=== PATIENT | female | born 1995 | race Caucasian/White ===

== ENCOUNTER 2016-08-30 10:28 | Emergency (ER) | payer MEDICAID, OTHER ==
[2016-08-30 11:13] VITALS: BP 112/73
--- NOTE | 2016-08-30 11:23 | UC ---
Abdominal Pain Female HPI - HPI Summary HPI Summary: DIARRHEA X 1 DAY + NAUSEA AND VOMITING X 1 SINCE THIS MORNING NO FEVER, NO CHILLS, NO ABDOMINAL PAIN - History of Current Complaint Chief Complaint: UCGI Stated Complaint: DIARRHEA,NAUSEA Time Seen by Provider: 08/30/16 11:13 Hx Obtained From: Patient Hx Last Menstrual Period: 3 weeks ago ?: No Onset/Duration: Sudden Onset, Lasting Days - 1, Still Present Severity Initially: Moderate Severity Currently: Moderate Location: Diffuse Radiates: No Character: Cramping Aggravating Factor(s): Food Alleviating Factor(s): Nothing Associated Signs and Symptoms: Positive: Nausea, Vomiting, Diarrhea. Negative: Fever, Cough, Chest Pain, Dizzy, Constipation, Blood in Stool, Vaginal Bleeding Allergies/Adverse Reactions: Allergies Allergy/AdvReac Type Severity Reaction Status Date / Time Amoxicillin [From Augmentin] AdvReac Diarrhea Verified 08/30/16 11:07 Clavulanic Acid AdvReac Diarrhea Verified 08/30/16 11:07 [From Augmentin] PMH/Surg Hx/FS Hx/Imm Hx Previously Healthy: Yes - Surgical History Surgical History: None - Family History Known Family History: Positive: None - Social History Alcohol Use: None Substance Use Type: None Smoking Status (MU): Never Smoked Tobacco Review of Systems Constitutional: Negative Skin: Negative Eyes: Negative ENT: Negative Respiratory: Negative Gastrointestinal: Vomiting, Diarrhea Musculoskeletal: Negative All Other Systems Reviewed And Are Negative: Yes Physical Exam Triage Information Reviewed: Yes Appearance: Well-Appearing, No Pain Distress, Well-Nourished Vital Signs: Initial Vital Signs Temp 98.7 F 08/30/16 11:08 Pulse 60 08/30/16 11:08 Resp 16 08/30/16 11:08 BP 112/73 08/30/16 11:08 Pulse Ox 98 08/30/16 11:08 Vital Signs Reviewed: Yes Eyes: Positive: Conjunctiva Clear ENT: Positive: Normal ENT inspection, Hearing grossly normal, Pharynx normal Neck exam: Normal Neck: Positive: Supple, Nontender, No Lymphadenopathy Respiratory Exam: Normal Respiratory: Positive: Chest non-tender, Lungs clear, Normal breath sounds Cardiovascular: Positive: RRR, No Murmur, Pulses Normal Abdomen Description: Positive: Nontender, Soft, CVA Tenderness (R). Negative: Distended, Guarding Bowel Sounds: Positive: Hypoactive Musculoskeletal Exam: Normal Skin Exam: Normal Abd Pain Female Course/Dx - Differential Dx/Diagnosis Provider Diagnoses: GASTROENTERITIS Discharge - Discharge Plan Condition: Stable Disposition: HOME Patient Education Materials: Gastroenteritis (ED) Referrals: Montana Farr [Primary Care Provider] - If Needed
== END 2016-08-30 11:38 | disposition home or self-care (01) ==
LOC: UCCORT 10:28
DX: K52.9 Noninfective gastroenteritis and colitis, unspecified (principal); Z88.0 Allergy status to penicillin
CPT/HCPCS: 99211; G0463

== ENCOUNTER 2017-06-12 09:06 | Emergency (ER) | payer SELFPAY ==
--- NOTE | 2017-06-12 09:10 | UC ---
Shoulder Pain HPI - HPI Summary HPI Summary: 22 year old female presents with complains of left shoulder pain secondary top overuse. - History of Current Complaint Stated Complaint: LEFT SHOULDER/ARM PAIN Time Seen by Provider: 06/12/17 09:10 Hx Obtained From: Patient Hx Last Menstrual Period: 3 weeks ago Onset/Duration: Sudden Onset Timing: Constant Severity Initially: Moderate Severity Currently: Moderate Pain Scale Used: 0-10 Numeric - 5 Character: Sharp Aggravating Factor(s): Movement, Lifting, Flexion, Extension Alleviating Factor(s): Rest Associated Signs And Symptoms: Positive: Negative - Allergies/Home Medications Allergies/Adverse Reactions: Allergies Allergy/AdvReac Type Severity Reaction Status Date / Time Amoxicillin [From Augmentin] AdvReac Diarrhea Verified 06/12/17 09:23 Clavulanic Acid AdvReac Diarrhea Verified 06/12/17 09:23 [From Augmentin] PMH/Surg Hx/FS Hx/Imm Hx Previously Healthy: Yes - Surgical History Surgical History: None - Family History Known Family History: Positive: None - Social History Alcohol Use: None Substance Use Type: None Smoking Status (MU): Never Smoked Tobacco Review of Systems Constitutional: Negative Skin: Negative Eyes: Negative ENT: Negative Respiratory: Negative Cardiovascular: Negative Gastrointestinal: Negative Genitourinary: Negative Motor: Negative Neurovascular: Negative Musculoskeletal: Myalgia, Other: - left shoulder pain/spasm Neurological: Negative Psychological: Negative All Other Systems Reviewed And Are Negative: Yes Physical Exam Triage Information Reviewed: Yes Vital Signs Reviewed: Yes Eye Exam: Normal ENT Exam: Normal Dental Exam: Normal Neck exam: Normal Neck: Positive: 1 Respiratory Exam: Normal Cardiovascular Exam: Normal Abdominal Exam: Normal Musculoskeletal Exam: Normal Musculoskeletal: Positive: Other: - left shoulder pain Neurological Exam: Normal Psychological Exam: Normal Skin Exam: Normal Shoulder Course/Dx - Differential Dx/Diagnosis Provider Diagnoses: left shoulder strain. left shoulder pain Discharge - Discharge Plan Condition: Stable Disposition: HOME Prescriptions: Ibuprofen TAB* [Motrin TAB* 800 MG] 800 mg PO Q6H #30 tab Methocarbamol TAB* [Robaxin 500 MG TAB*] 500 mg PO TID PRN #30 tab PRN Reason: Spasms Patient Education Materials: Shoulder Pain (ED) Referrals: Bayron Sotelo PA [Primary Care Provider] - Niles Lynn [Physical Therapist] -
[2017-06-12 09:27] VITALS: BP 114/62
== END 2017-06-12 09:40 | disposition home or self-care (01) ==
LOC: UCCORT 09:06
DX: S46.912A Strain of unspecified muscle, fascia and tendon at shoulder and upper arm level, left arm, initial encounter (principal); X50.9XXA Other and unspecified overexertion or strenuous movements or postures, initial encounter; M25.512 Pain in left shoulder; Y92.9 Unspecified place or not applicable; Z88.3 Allergy status to other anti-infective agents
CPT/HCPCS: 99212; G0463

== ENCOUNTER 2017-06-18 09:38 | Emergency (ER) | payer SELFPAY ==
[2017-06-18 10:29] VITALS: BP 113/67
[2017-06-18] MEDS ORDERED: Ondansetron ODT TAB* 4 MG PO ONE (11:02)
--- NOTE | 2017-06-18 11:03 | UC ---
Abdominal Pain Female HPI - HPI Summary HPI Summary: Nausea/vomiting and diarrhea(watery) began in the night last night-no fevers does have chills - History of Current Complaint Chief Complaint: UCGI Stated Complaint: STOMACH ACHE Time Seen by Provider: 06/18/17 10:56 Hx Obtained From: Patient Hx Last Menstrual Period: 05/19/17 ?: No Onset/Duration: Sudden Onset, Lasting Hours, Still Present Timing: Constant Severity Initially: Moderate Severity Currently: Moderate Location: Diffuse Radiates: No Character: Cramping Aggravating Factor(s): Food Alleviating Factor(s): Nothing Associated Signs and Symptoms: Positive: Nausea, Vomiting, Diarrhea Allergies/Adverse Reactions: Allergies Allergy/AdvReac Type Severity Reaction Status Date / Time Amoxicillin [From Augmentin] AdvReac Diarrhea Verified 06/18/17 10:21 Clavulanic Acid AdvReac Diarrhea Verified 06/18/17 10:21 [From Augmentin] Home Medications: Home Medications Naproxen TAB* [Naprosyn 250 mg TAB*] 250 mg PO Q8H PRN 06/18/17 [History Confirmed 06/18/17] PMH/Surg Hx/FS Hx/Imm Hx Previously Healthy: Yes - Surgical History Surgical History: None - Family History Known Family History: Positive: None - Social History Occupation: Employed Full-time Lives: With Family Alcohol Use: Occasionally Substance Use Type: None Substance Use Comment - Amount & Last Used: OCCAISIONALLY Smoking Status (MU): Never Smoked Tobacco - Immunization History Most Recent Influenza Vaccination: unsure Review of Systems Constitutional: Chills Skin: Negative Eyes: Negative ENT: Negative Respiratory: Negative Cardiovascular: Negative Gastrointestinal: Vomiting, Diarrhea, Nausea Genitourinary: Negative Motor: Negative Neurovascular: Negative Musculoskeletal: Negative Neurological: Negative Psychological: Negative Is Patient Immunocompromised?: No All Other Systems Reviewed And Are Negative: Yes Physical Exam Triage Information Reviewed: Yes Appearance: No Pain Distress, Well-Nourished, Ill-Appearing - mild Vital Signs: Initial Vital Signs Temp 98.4 F 06/18/17 10:23 Pulse 84 06/18/17 10:23 Resp 16 06/18/17 10:23 BP 113/67 06/18/17 10:23 Pulse Ox 100 06/18/17 10:23 Vital Signs Reviewed: Yes Eye Exam: Normal Eyes: Positive: Conjunctiva Clear ENT Exam: Normal ENT: Positive: Normal ENT inspection, Hearing grossly normal, Pharynx normal, TMs normal, Uvula midline. Negative: Nasal congestion, Nasal drainage, Tonsillar swelling, Tonsillar exudate, Trismus, Muffled voice, Hoarse voice, Dental tenderness, Sinus tenderness Dental Exam: Normal Neck exam: Normal Neck: Positive: Supple, Nontender, No Lymphadenopathy Respiratory Exam: Normal Respiratory: Positive: Chest non-tender, Lungs clear, Normal breath sounds, No respiratory distress, No accessory muscle use Cardiovascular Exam: Normal Cardiovascular: Positive: RRR, No Murmur, Pulses Normal, Brisk Capillary Refill Abdominal Exam: Normal Abdomen Description: Positive: Nontender, No Organomegaly, Soft. Negative: CVA Tenderness (R), CVA Tenderness (L), Guarding, Hepatomegaly, McBurney's Point Tenderness, Peritoneal Signs Bowel Sounds: Positive: Present Musculoskeletal Exam: Normal Musculoskeletal: Positive: Strength Intact, ROM Intact, No Edema Neurological Exam: Normal Neurological: Positive: Alert, Muscle Tone Normal Psychological Exam: Normal Skin Exam: Normal Re-Evaluation - Re-Evaluation First Eval Change: Improved - tolerated po fluids well after zofran and is feeling better Abd Pain Female Course/Dx - Course Course Of Treatment: zofran rest advance diet from clear liquids over never 24 hours - Differential Dx/Diagnosis Provider Diagnoses: Acute nausea, vomiting, diarrhea Discharge - Discharge Plan Condition: Stable Disposition: HOME Prescriptions: Ondansetron ODT TAB* [Zofran 4 MG Odt TAB*] 4 mg PO Q6H PRN #4 tab.odt PRN Reason: nausea/vomiting Patient Education Materials: Acute Nausea and Vomiting (ED), Acute Diarrhea (ED ), Nutrition Tips for Relief of Diarrhea (ED) Forms: *Work Release Referrals: Bayron Sotelo PA [Primary Care Provider] - If Needed
== END 2017-06-18 11:58 | disposition home or self-care (01) ==
LOC: UCCORT 09:38
DX: R11.2 Nausea with vomiting, unspecified (principal); R19.7 Diarrhea, unspecified; Z88.1 Allergy status to other antibiotic agents
CPT/HCPCS: 99212; A9270-GY; G0463

== ENCOUNTER 2017-09-01 12:57 | Emergency (ER) | payer SELFPAY ==
--- OUTSIDE RECORDS SUMMARY | 2017-09-01 13:15 | XMS REPORT ---
:1995 External Reference #:[id number] Author Organization [facility] Address [address] [place] [address] Phone [phone] Care Team Providers Name Role Phone Lev Sotelo Primary Care Physician Unavailable Payers Type Date Identification Numbers Payment Provider Subscriber Commercial Expires: Policy Number: [id number] [facility] Rody Luis 2016 PayID: [id number] [address] [place] [address] Medicaid Expires: 2016 Policy Number: [id number] Medicaid -Maria A Rody Broderickby PayID: [id number] [address] [place] [address] Medicaid Expires: 2016 Policy Number: [id number] Medicaid Pe ([facility]) Rody Broderickby PayID: [id number] [address] [place] [address] Commercial Expires: 2015 Policy Number: [id number] Rody Luis PayID: [id number] [place] [id number] Commercial Expires: 2015 [facility]: [id number] [facility] [id number] [address] [address] [place] [address] Medicaid Policy Number: [id number] Medicaid Pe ([facility]) Rody Smith PayID: [id number] [address] [place] [id number] Problems Date Description Provider Status Onset: 03/23/2015 Migraine with aura Estefania Mcmullen NP Active Family History Date Family Member(s) Problem(s) Comments General Diabetes MGM Father Alive Father Hypertension Mother due to Suicide () - September 2014 age 36. Siblings 2 younger brothers Social History Type Date Description Comments Education Highest level completed, 12th grade Marital Status Legal Status: Never Diet Healthy, Well Balanced Occupation Follow Up Rep Work Status Full-Time Employment ETOH Use Occasionally consumes alcohol Smoking Patient has never smoked Recreational Drug Use Sporadically uses Marijuana Recreational Drug Use Teaching Provided Regarding Naloxone/Narcan Training Available At [facility] Tattoo/Piercing Tattoo professionally done Tattoo/Piercing Pierced ears Tattoo/Piercing Piercings professionally done Sun Exposure Uses sunscreen sometimes Currently Active Patient is currently sexually active Condom Use Occasionally Contraceptive Methods Current methods used include Nexplanon Age 1st [place] 17 Years Old # Partners in a Lifetime 4 STD's No STD History Allergies, Adverse Reactions, Alerts Date Description Reaction Status Severity Comments 03/23/2015 Augmentin severe diarrhea active pt aware this is a side effect and not an allergy Medications Medication Date Status Form Strength Qnty SIG Indications Ordering Provider Nexplanon Active Implant 68mg one device in Z30.46 In Whan 017 Left arm MD Jeevan subdermally Nexplanon Active Implant 68mg 1units Estefania 014 Servies, [employer] Diflucan Hx Tablets 150mg 2tabs take 1 tab x1 B37.3 In Whan 017 - now and october MD Jeevan repeat in 10 018 days if symptoms do not resolve Diflucan Hx Tablets 150mg 1tabs 1 tab by mouth B37.3 Estefania 015 - as one dose Servies, [employer] 016 Naprosyn 00/00/0 Hx Unknown 000 - 017 Immunizations CPT Code Status Date Vaccine Lot # [id number] Given 03/23/2015 J-Influenza Virus Split 3 Yrs And Above For [id number] Intramuscular Use Vital Signs Date Vital Result Comment 08/12/2017 BP Systolic 111 mmHg BP Diastolic 63 mmHg Height 64 inches 5'4" Weight 160.00 lb BMI (Body Mass Index) 27.5 kg/m2 01/27/2017 BP Systolic 110 mmHg BP Diastolic 69 mmHg Height 64 inches 5'4" Weight 163.00 lb BMI (Body Mass Index) 28.0 kg/m2 12/24/2016 BP Systolic 113 mmHg BP Diastolic 63 mmHg BP Systolic Recheck 114 mmHg post nexplanon insertion BP Diastolic Recheck 70 mmHg post nexplanon insertion Height 64 inches 5'4" Weight 157.00 lb BMI (Body Mass Index) 26.9 kg/m2 10/24/2016 BP Systolic 112 mmHg BP Diastolic 74 mmHg Height 64 inches 5'4" Weight 156.00 lb BMI (Body Mass Index) 26.8 kg/m2 08/02/2015 BP Systolic 100 mmHg BP Diastolic 60 mmHg Height 64 inches 5'4" Weight 145.00 lb BMI (Body Mass Index) 24.9 kg/m2 Last Menstrual Period [id number] 03/23/2015 BP Systolic 122 mmHg BP Diastolic 80 mmHg Height 63.75 inches 5'3.75" Weight 149.00 lb BMI (Body Mass Index) 25.8 kg/m2 Last Menstrual Period [id number] Results Test Date Test Result H/L Range Note Wet Prep.... 08/12/2017 WBC Smear neg Clue Cells Vag Fluid Wet Prep neg Alisia Wet Prep neg Lactobacillus Wet Prep few Whiff Wet Prep neg Bacteria Wet Prep na PH Wet Prep 4.5 Misc Other Test no tric Urinalysis DIP Only.... 08/12/2017 Urine Leukocyte Esterase QN tr Urine Nitrite QN n Urine Blood +++hemolyzed Urine PH 6 Urine Protein Random tr Urine Ketone Random n Urine Glucose QN Random n Laboratory test finding 01/27/2017 Test Urine..... negative Wet Prep.... 01/27/2017 WBC Smear neg Clue Cells Vag Fluid Wet Prep neg Alisia Wet Prep many Lactobacillus Wet Prep none Whiff Wet Prep neg Bacteria Wet Prep na PH Wet Prep 4.5 Misc Other Test no trich Laboratory test finding 12/24/2016 Test Urine..... negative Laboratory test finding 12/24/2016 HIV Rapid... Neg Urinalysis DIP Only.... 10/24/2016 Urine Leukocyte Esterase QN N Urine Nitrite QN N Urine Blood N Urine PH 6.0 Urine Protein Random N Urine Ketone Random N Urine Glucose QN Random N Laboratory test finding 10/24/2016 Test Urine..... neg Wet Prep.... 10/24/2016 WBC Smear 0 Clue Cells Vag Fluid Wet Prep 0 Alisia Wet Prep 0 Lactobacillus Wet Prep few Whiff Wet Prep neg. Bacteria Wet Prep n/a PH Wet Prep 4.5 Misc Other Test no trich seen Chlam Trach/Neisseria 10/24/2016 C.Trachomatis NOT DETECTED Not Detected 1 Gonorroeae Rna Tma Rna,Tma N.Gonorrhoeae Rna,Tma NOT DETECTED Not Detected 2 Culture,Urine,Voided 08/02/2015 Source URINE-URINE Final Report SEE NOTE 3 Chlam Trach/Neisseria 08/02/2015 C.Trachomatis NOT DETECTED Not Detected 4 Gonorroeae Rna Tma Rna,Tma N.Gonorrhoeae Rna,Tma NOT DETECTED Not Detected 5 Urinalysis DIP Only.... 08/02/2015 Urine Leukocyte Esterase QN N Urine Nitrite QN N Urine Blood +++hem Urine PH 5 Urine Protein Random Tr Urine Ketone Random + Urine Glucose QN Random N Wet Prep.... 08/02/2015 WBC Smear 0 0 Clue Cells Vag Fluid Wet Prep 0 0 Alisia Wet Prep 0 0 Lactobacillus Wet Prep 0 0 Whiff Wet Prep negative negative Bacteria Wet Prep n/a neg PH Wet Prep 4.5 4.5 Misc Other Test no trich seen no trich seen Laboratory test 03/23/2015 C.Trachomatis Rna,Tma NOT DETECTED Not Detected 6 finding W/RFX N.Gonorrhoeae Rna,Tma Urinalysis DIP 03/23/2015 Urine Leukocyte neg Only.... Esterase QN Urine Nitrite QN neg Urine Blood neg Urine PH 5.0 Urine Protein Random neg Urine Ketone Random neg Urine Glucose QN Random neg 1 This test was performed using the APTIMA COMBO2(R) Assay (GEN-PROBE(R). The analytical performance characteristics of this assay, when used to test SurePath(R) specimens have been determined by [facility]. 2 This test was performed using the APTIMA COMBO2(R) Assay (GEN-PROBE(R). The analytical performance characteristics of this assay, when used to test SurePath(R) specimens have been determined by [facility]. 3 NO GROWTH 4 This test was performed using the APTIMA COMBO2(R) Assay (GEN-PROBE(R). The analytical performance characteristics of this assay, when used to test SurePath(R) specimens have been determined by [facility]. 5 This test was performed using the APTIMA COMBO2(R) Assay (GEN-PROBE(R). The analytical performance characteristics of this assay, when used to test SurePath(R) specimens have been determined by [facility]. 6 This test was performed using the APTIMA COMBO2(R) Assay (GEN-PROBE(R). The analytical performance characteristics of this assay, when used to test SurePath(R) specimens have been determined by [facility]. Procedures Date CPT Code Description Status 12/24/2016 09050 Removal With Reinsertion Non-Biodegradable Drug Completed Delivery Implant Encounters Type Date Location Provider CPT E/M Dx Office Visit 12/24/2016 8:30a [facility] [place] [address] Z30.46 Z32.02 Z11.4 Z30.49 Z71.7 Plan of Care Future Appointment(s):09/09/2017 8:00 am - [employer] at [facility]08/12/2017 - Aida Cisse NPZ11.3 Encntr screen for infections w sexl mode of lffvujpudT06.2 Pelvic and perineal painNew Xrays:Ultrasound Pelvic Nonob ZxrhkjbjL85.46 Enctr srvlnc implantable subdermal contraceptive
[2017-09-01 13:35] VITALS: BP 115/68
--- NOTE | 2017-09-01 13:58 | UC ---
Head Injury HPI - HPI Summary HPI Summary: head injury x 1 day hit the table with her head as she was cleaning the table no loc, no memory loss, no n/v, no photophobia + fatigue, just not feeling well - History Of Current Complaint Chief Complaint: UCHeadInjury Stated Complaint: HEAD ACHE (HEAD INJ 2DAYS) Time Seen by Provider: 09/01/17 13:44 Hx Obtained From: Patient Hx Last Menstrual Period: 08/10/17 ?: No Onset/Duration: Sudden Onset, Lasting Days - 1, Still Present Severity Currently: Moderate Severity Initially: Moderate Pain Intensity: 4 Character: Dull Aggravating Factor(s): Nothing Alleviating Factor(s): Nothing Associated Signs And Symptoms: Negative: LOC (Time In Secs./Mins/Hrs), LOC Duration Unknown, Confusion, Memory Loss, Seizure, Epistaxis, Dental Malocclusion, Neck Pain, Nausea, Vomiting - Allergies/Home Medications Allergies/Adverse Reactions: Allergies Allergy/AdvReac Type Severity Reaction Status Date / Time amoxicillin [From Augmentin] Allergy Unknown Diarrhea Verified 09/01/17 13:25 clavulanic acid Allergy Unknown Diarrhea Verified 09/01/17 13:25 [From Augmentin] PMH/Surg Hx/FS Hx/Imm Hx Previously Healthy: Yes - Surgical History Surgical History: None - Family History Known Family History: Positive: None Negative: Diabetes - Social History Alcohol Use: Occasionally Substance Use Type: Marijuana Substance Use Comment - Amount & Last Used: OCCAISIONALLY Smoking Status (MU): Never Smoked Tobacco - Immunization History Most Recent Influenza Vaccination: unsure Review of Systems Constitutional: Negative Skin: Negative Eyes: Negative ENT: Negative Respiratory: Negative Cardiovascular: Negative Musculoskeletal: Negative Neurological: Negative Is Patient Immunocompromised?: No All Other Systems Reviewed And Are Negative: Yes Physical Exam Triage Information Reviewed: Yes Appearance: Well-Appearing, No Pain Distress, Well-Nourished Vital Signs: Initial Vital Signs Temp 99.4 F 09/01/17 13:26 Pulse 63 09/01/17 13:26 Resp 16 09/01/17 13:26 BP 115/68 09/01/17 13:26 Pulse Ox 100 09/01/17 13:26 Vital Signs Reviewed: Yes Eyes: Positive: Conjunctiva Clear ENT: Positive: Normal ENT inspection, Hearing grossly normal, Pharynx normal Neck: Positive: Supple, Nontender, No Lymphadenopathy Respiratory: Positive: Chest non-tender, Lungs clear, Normal breath sounds Cardiovascular: Positive: RRR, No Murmur, Pulses Normal Abdominal Exam: Normal Abdomen Description: Positive: Nontender, Soft Bowel Sounds: Positive: Present Neurological Exam: Normal UC Physical Exam Vital Signs On Initial Exam: Initial Vitals Temp Pulse Resp BP Pulse Ox 99.4 F 63 16 115/68 100 09/01/17 13:26 09/01/17 13:26 09/01/17 13:26 09/01/17 13:26 09/01/17 13:26 - Neurological Exam Neurological: Normal, Sensory/Motor Intact, Alert, Oriented to Person Place, Time, CN Intact II-III, Reflexes Intact, Normal Gait, Speech Normal Head Injury Course/Dx - Differential Dx/Diagnosis Provider Diagnoses: concussion Discharge - Discharge Plan Condition: Stable Disposition: HOME Patient Education Materials: Concussion (ED) Forms: *Work Release Referrals: Bayron Sotelo PA [Primary Care Provider] - If Needed
== END 2017-09-01 13:58 | disposition home or self-care (01) ==
LOC: UCCORT 12:57
DX: S06.0X0A Concussion without loss of consciousness, initial encounter (principal); W22.03XA Walked into furniture, initial encounter; Y93.E9 Activity, other interior property and clothing maintenance; Y92.9 Unspecified place or not applicable; Z88.1 Allergy status to other antibiotic agents
CPT/HCPCS: 99211; G0463

== ENCOUNTER 2017-09-05 12:23 | Emergency (ER) | payer SELFPAY ==
[2017-09-05 12:50] VITALS: BP 122/69
--- NOTE | 2017-09-05 13:02 | UC ---
Headache HPI - HPI Summary HPI Summary: headaches x 5 days + head injury / concussion 5 days ago , still not better, + photophobia, fatigue, no loc, no memory loss - History Of Current Complaint Chief Complaint: UCHeadache Stated Complaint: CONCUSSION RECHECK (STILL HAS DE) Time Seen by Provider: 09/05/17 12:40 Hx Obtained From: Patient Hx Last Menstrual Period: ?: No Onset/Duration: Sudden Onset, Lasting Days - 5, Still Present Onset Of Symptoms: Sudden, Still Present Initially Headache Was: Moderate Currently Pain Is: Moderate Pain Intensity: 5 Timing: Constant Character: Dull, Pressure Location of Headache: Diffuse Aggravating Factor(s): Nothing Associated Signs And Symptoms: Negative: Dizziness, Seizure, Nausea, Vomiting, Sinus Pressure, Neck Pain - Allergies/Home Medications Allergies/Adverse Reactions: Allergies Allergy/AdvReac Type Severity Reaction Status Date / Time amoxicillin [From Augmentin] Allergy Unknown Diarrhea Verified 09/05/17 12:44 clavulanic acid Allergy Unknown Diarrhea Verified 09/05/17 12:44 [From Augmentin] PMH/Surg Hx/FS Hx/Imm Hx Previously Healthy: Yes - Surgical History Surgical History: None - Family History Known Family History: Positive: None Negative: Diabetes - Social History Alcohol Use: Occasionally Substance Use Type: Marijuana Substance Use Comment - Amount & Last Used: OCCAISIONALLY Smoking Status (MU): Never Smoked Tobacco - Immunization History Most Recent Influenza Vaccination: unsure Review of Systems Constitutional: Negative Skin: Negative Eyes: Negative ENT: Negative Respiratory: Negative Is Patient Immunocompromised?: No All Other Systems Reviewed And Are Negative: Yes Physical Exam Triage Information Reviewed: Yes Appearance: Well-Appearing, No Pain Distress, Well-Nourished Vital Signs: Initial Vital Signs Temp 98.7 F 09/05/17 12:45 Pulse 60 09/05/17 12:45 Resp 16 09/05/17 12:45 BP 122/69 09/05/17 12:45 Pulse Ox 100 09/05/17 12:45 Vital Signs Reviewed: Yes Eyes: Positive: Conjunctiva Clear ENT: Positive: Normal ENT inspection, Hearing grossly normal, Pharynx normal Neck exam: Normal Neck: Positive: Supple, Nontender Respiratory: Positive: Chest non-tender, Lungs clear, Normal breath sounds, No respiratory distress Cardiovascular: Positive: RRR, No Murmur, Pulses Normal Abdominal Exam: Normal Abdomen Description: Positive: Nontender. Negative: Distended, Guarding Bowel Sounds: Negative: Present Musculoskeletal: Positive: Strength Intact, ROM Intact, No Edema Neurological: Positive: Alert Skin Exam: Normal UC Physical Exam Vital Signs On Initial Exam: Initial Vitals Temp Pulse Resp BP Pulse Ox 98.7 F 60 16 122/69 100 09/05/17 12:45 09/05/17 12:45 09/05/17 12:45 09/05/17 12:45 09/05/17 12:45 - Neurological Exam Neurological: Normal, Sensory/Motor Intact, Alert, Oriented to Person Place, Time, CN Intact II-III, Normal Gait, Speech Normal Headache Course/Dx - Differential Dx/Diagnosis Provider Diagnoses: concussion Discharge - Discharge Plan Condition: Stable Disposition: HOME Patient Education Materials: Concussion (ED) Forms: *Work Release Referrals: Bayron Sotelo PA [Primary Care Provider] - 7 Days
== END 2017-09-05 13:07 | disposition home or self-care (01) ==
LOC: UCCORT 12:23
DX: Z51.89 Encounter for other specified aftercare (principal); S06.0X9D Concussion with loss of consciousness of unspecified duration, subsequent encounter; X58.XXXD Exposure to other specified factors, subsequent encounter; Z88.0 Allergy status to penicillin; Z88.8 Allergy status to other drugs, medicaments and biological substances
CPT/HCPCS: 99211; G0463

== ENCOUNTER 2017-11-09 08:16 | Emergency (ER) | payer OTHER ==
--- NOTE | 2017-11-09 08:29 | UC ---
Throat Pain/Nasal Joaquin HPI - HPI Summary HPI Summary: 22 y/o female presents to the urgent care c/o sore throat, fever, nausea and vomiting since last night. This morning she woke up w/ body aches, chills and had an episode of vomiting. Her boyfriend had similar symptoms last week, but he didn't get any treatment. Pt states pain w/ swallowing is 8/10. She took OTC cold and flu medication to alleviate symptoms. Pt denies cough, SOB, chest pain , abdominal pain, N/V/D. LMP: 11/07/2017. Pt is UTD w/ all vaccines for her age. Pt requests a note for work. - History of Current Complaint Stated Complaint: ST/FEVER/BODY ACHE/NAUSEA Time Seen by Provider: 11/09/17 08:29 Hx Obtained From: Patient Hx Last Menstrual Period: 11/07/2017 ?: No Onset/Duration: Gradual Onset, Lasting Days - 1 day, Still Present, Worse Since - this morning Severity: Moderate Pain Intensity: 8 Pain Scale Used: 0-10 Numeric Cough: None Associated Signs & Symptoms: Positive: Dysphagia, Fever, Vomiting - Epiglottits Risk Factors Epiglottis Risk Factors: Negative - Allergies/Home Medications Allergies/Adverse Reactions: Allergies Allergy/AdvReac Type Severity Reaction Status Date / Time amoxicillin [From Augmentin] Allergy Unknown Diarrhea Verified 11/09/17 08:29 clavulanic acid Allergy Unknown Diarrhea Verified 11/09/17 08:29 [From Augmentin] PMH/Surg Hx/FS Hx/Imm Hx Previously Healthy: Yes Other Endocrine History: TMJ disease - Surgical History Surgical History: None - Family History Known Family History: Positive: Hypertension, Diabetes - Social History Occupation: Employed Full-time Lives: With Family Alcohol Use: Occasionally Substance Use Type: Marijuana Substance Use Comment - Amount & Last Used: OCCAISIONALLY Smoking Status (MU): Never Smoked Tobacco - Immunization History Most Recent Influenza Vaccination: unsure Vaccination Up to Date: Yes Review of Systems Constitutional: Fever, Chills, Fatigue, Other - body aches Skin: Negative Eyes: Negative ENT: Sore Throat Respiratory: Negative Cardiovascular: Negative Gastrointestinal: Vomiting, Nausea Genitourinary: Negative Motor: Negative Neurovascular: Negative Neurological: Headache Psychological: Negative Is Patient Immunocompromised?: No All Other Systems Reviewed And Are Negative: Yes Physical Exam - Summary Physical Exam Summary: VITAL SIGNS: Reviewed. GENERAL: Patient is a well developed and nourished female who is sitting comfortable in the examining table. Patient is not in any acute respiratory distress. HEAD AND FACE: No signs of trauma. No ecchymosis, hematomas or skull depressions. No sinus tenderness. EYES: PERRLA, EOMI x 2, No injected conjunctiva, no nystagmus. No photophobia. EARS: Hearing grossly intact. Ear canals and tympanic membranes are within normal limits. MOUTH: Positive pharynx with erythema, exudates, palatal petechiae. B/L tonsillar enlargement with exudate. Uvula in midline. NECK: Supple, trachea is midline, Positive anterior cervical lymphadenopathy, no JVD, no carotid bruit, no c-spine tenderness, neck with full ROM. No meningeal signs, no Kernig's or brudzinskis signs. CHEST: Symmetric, no tenderness at palpation LUNGS: Clear to auscultation bilaterally. No wheezing or crackles. CVS: Regular rate and rhythm, S1 and S2 present, no murmurs or gallops appreciated. ABDOMEN: Soft, non-tender. No signs of distention. No rebound no guarding, and no masses palpated. Bowel sounds are normal. EXTREMITIES: FROM in all major joints, no edema, no cyanosis or clubbing. NEURO: Alert and oriented x 3. No acute neurological deficits. Speech is normal and follows commands. SKIN: Dry and warm Triage Information Reviewed: Yes Throat Pain/Nasal Course/Dx - Course Course Of Treatment: 22 y/o female presents to the urgent care c/o sore throat, fever, nausea and vomiting since last night. This morning she woke up w/ body aches, chills and had an episode of vomiting. Her boyfriend had similar symptoms last week, but he didn't get any treatment. Pt states pain w/ swallowing is 8/10. She took OTC cold and flu medication to alleviate symptoms. Pt denies cough, SOB, chest pain, abdominal pain, N/V/D. LMP: 11/07/2017. Pt is UTD w/ all vaccines for her age. Hx obtained. Pt w/ febrile and pharyngitis on examination. Pt PCP allergic. Pt given Ibuprofen PO and Zofran Po at the clinic to alleviate fever and nausea. pt tolerated well medication and felt better. Rapid strep ordered: result: positive. Strep pharyngitis. Rx Z-dave PO and Ibuprofen PO for pain and swelling, and Prometahzine PO for nausea and vomiting. PT Advised on hand washing to avoid spreading. Also advised to rest, eat well and avoid strenuous exercise. If symptoms do not improve or worsen advised to return to the urgent care or f/u with her PCP for further evaluation and treatment. PT understood and agreed w/ plan of care. - Differential Dx/Diagnosis Differential Diagnosis/HQI/PQRI: Influenza, Laryngitis, Mononucleosis, Pharyngitis, Sinusitis, Tonsillitis, URI Provider Diagnoses: 1- Strep pharyngitis. 2- Nausea and vomiting Discharge - Sign-Out/Discharge Documenting (check all that apply): Discharge/Admit/Transfer - D/C home - Discharge Plan Condition: Stable Disposition: HOME Prescriptions: Azithromyxin DAVE (NF) [Z-Dave (Zithromax) 250 mg tabs #6] 2 tab PO .TODAY, THEN 1 DAILY #6 tab Ibuprofen TAB* [Motrin TAB* 600 MG] 600 mg PO Q6H PRN #30 tab PRN Reason: Fever Promethazine TAB* [Phenergan Tab*] 25 mg PO Q6H PRN #12 tab PRN Reason: Vomiting Patient Education Materials: Strep Throat (ED), Acute Nausea and Vomiting (ED) Forms: *Work Release Referrals: Bayron Sotelo PA [Primary Care Provider] - 3 Days Additional Instructions: 1- Please take the full course of the antibiotic to avoid resistance. 2-Please take ibuprofen PO q6-8hrs prn as instructed after meals to alleviate pain and swelling. Increase fluid intake, eat soft meals, rest and avoid strenuous exercise 3- Take Promethazine PO prn as directed to alleviate nausea and vomiting, 3-If symptoms do not improve or worsen please return to the urgent care or f/u with your PCP for further evaluation and treatment. - Billing Disposition and Condition Condition: STABLE Disposition: HOME
[2017-11-09 08:32] VITALS: BP 111/74
[2017-11-09] MEDS ORDERED: Ondansetron ODT TAB* 4 MG PO ONE (08:44)
[2017-11-09] MEDS ORDERED: Ibuprofen TAB* 400 MG PO ONE (08:45)
== END 2017-11-09 09:05 | disposition home or self-care (01) ==
LOC: UCCORT 08:16
DX: J02.0 Streptococcal pharyngitis (principal); R11.2 Nausea with vomiting, unspecified; Z88.0 Allergy status to penicillin; Z88.8 Allergy status to other drugs, medicaments and biological substances
CPT/HCPCS: 87651; 99212; A9270-GY; G0463

== ENCOUNTER 2017-12-07 12:33 | Emergency (ER) | payer OTHER ==
--- NOTE | 2017-12-07 12:54 | UC ---
Hand/Wrist HPI - HPI Summary HPI Summary: 22 yo female presents with left wrist pain s/p fall on 12/04/17. She tells me that she was at work carrying a crate when she slipped on a piece of plastic on the floor and landed on the lateral aspect of her left wrist. She went to the [facility] that day and tells me that XRs were negative. She was given a cock up splint - which she has been wearing daily - and taking ibuprofen for pain and swelling with mild relief. She is here today with continued pain, worse with rotational movements and does not feel she can return to work safely. Denies numbness or tingling. - History Of Current Complaint Hx Obtained From: Patient Hx Last Menstrual Period: 11/07/2017 Onset/Duration: Sudden Onset Severity Initially: Moderate Severity Currently: Mild Pain Intensity: 4 Pain Scale Used: 0-10 Numeric <Fred Wesley - Last Filed: 12/07/17 13:45> <Jake Rae - Last Filed: 12/07/17 14:22> - History Of Current Complaint Stated Complaint: WC/LEFT WRIST INJURY Time Seen by Provider: 12/07/17 12:54 - Allergies/Home Medications Allergies/Adverse Reactions: Allergies Allergy/AdvReac Type Severity Reaction Status Date / Time amoxicillin [From Augmentin] AdvReac Unknown Diarrhea Verified 12/07/17 13:10 clavulanic acid AdvReac Unknown Diarrhea Verified 12/07/17 13:10 [From Augmentin] Home Medications: Home Medications Ibuprofen TAB* [Motrin TAB* 600 MG] 600 mg PO Q6H PRN 12/07/17 [History Confirmed 12/07/17] PMH/Surg Hx/FS Hx/Imm Hx - Additional Past Medical History Additional PMH: None Previously Healthy: Yes - Surgical History Surgical History: None - Family History Known Family History: Positive: None, Hypertension, Diabetes - Social History Occupation: Employed Full-time Lives: Alone Alcohol Use: Occasionally Substance Use Type: Marijuana Substance Use Comment - Amount & Last Used: OCCAISIONALLY Smoking Status (MU): Never Smoked Tobacco - Immunization History Most Recent Influenza Vaccination: unsure Vaccination Up to Date: Yes <Fred Wesley - Last Filed: 12/07/17 13:45> Review of Systems Constitutional: Negative Skin: Negative Respiratory: Negative Cardiovascular: Negative Motor: Negative Neurovascular: Negative Musculoskeletal: Other: - Left wrist pain Neurological: Negative Psychological: Negative All Other Systems Reviewed And Are Negative: Yes <Fred Wesley Last Filed: 12/07/17 13:45> Physical Exam - Summary Physical Exam Summary: GENERAL: NAD. WDWN. No pain distress. SKIN: No rashes, sores, lesions, or open wounds. NECK: Supple. Nontender. No lymphadenopathy. CHEST: No accessory muscle use. Breathing comfortably and in no distress. CV: RRR. Without m/r/g. Pulses intact radial and ulnar. MSK: LEFT WRIST: Mild TTP about ulnar aspect. FROM with mild pain during rotational movements. Strength 5/5 including evaluation analyst strength. No edema or obvious bony deformities. No snuffbox tenderness. NEURO: Alert. Sensations intact hand and all fingers. PSYCH: Age appropriate behavior. Triage Information Reviewed: Yes Vital Signs: Vital Signs: Temp Pulse Resp BP Pulse Ox 98.7 F 86 16 105/62 100 12/07/17 13:01 12/07/17 13:01 12/07/17 13:01 12/07/17 13:01 12/07/17 13:01 <Fred Wesley - Last Filed: 12/07/17 13:45> Vital Signs: Initial Vital Signs Temp 98.7 F 12/07/17 13:01 Pulse 86 12/07/17 13:01 Resp 16 12/07/17 13:01 BP 105/62 12/07/17 13:01 Pulse Ox 100 12/07/17 13:01 <Jake Rae - Last Filed: 12/07/17 14:22> Hand/Wrist Course/Dx - Course Course Of Treatment: XR: IMPRESSION: NO EVIDENCE FOR FRACTURE. IF THE PATIENT'S SYMPTOMS PERSIST RECOMMEND FOLLOW-UP IMAGING. Continue using cock-up splint. Given continued pain, will have her f/u with orthopedics for RTW clearance. - Differential Dx/Diagnosis Provider Diagnoses: Left wrist sprain <Fred Wesley Last Filed: 12/07/17 13:45> Discharge - Sign-Out/Discharge Documenting (check all that apply): Discharge/Admit/Transfer - Billing Disposition and Condition Condition: STABLE Disposition: Home <Fred Wesley Last Filed: 12/07/17 13:45> - Billing Disposition and Condition Condition: STABLE Disposition: Home <Jake Rae - Last Filed: 12/07/17 14:22> - Discharge Plan Condition: Stable Disposition: HOME Patient Education Materials: Wrist Sprain (ED) Forms: *Work Release Referrals: Bayron Sotelo PA [Primary Care Provider] - Gayatri Prado MD [Medical Doctor] - As Soon As Possible Additional Instructions: If you develop a fever, shortness of breath, chest pain, new or worsening symptoms - please call your PCP or go to the ED. 1) Please call Orthopedics at the number below to schedule a follow up appointment and clearance to return to work Per institutional requirements, I have reviewed the chart, however, I was not consulted specifically or made aware of this patient by the above midlevel provider. I did not personally evaluate, interact with , or disposition this patient.
[2017-12-07 13:10] VITALS: BP 105/62
--- NOTE | 2017-12-07 13:34 | RAD ---
INDICATION: Left wrist injury. TECHNIQUE: 3 views of the left wrist were obtained. FINDINGS: The bones are in normal alignment. No fracture is seen. Joint spaces appear maintained. IMPRESSION: NO EVIDENCE FOR FRACTURE. IF THE PATIENT'S SYMPTOMS PERSIST RECOMMEND FOLLOW-UP IMAGING.
== END 2017-12-07 13:48 | disposition home or self-care (01) ==
LOC: UCCORT 12:33
DX: S63.502A Unspecified sprain of left wrist, initial encounter (principal); W01.0XXA Fall on same level from slipping, tripping and stumbling without subsequent striking against object, initial encounter; Y93.01 Activity, walking, marching and hiking; Y92.89 Other specified places as the place of occurrence of the external cause; Y99.0 Civilian activity done for income or pay; Z88.0 Allergy status to penicillin; Z88.8 Allergy status to other drugs, medicaments and biological substances
CPT/HCPCS: 99211; G0463

== ENCOUNTER 2017-12-25 08:35 | Emergency (ER) | payer OTHER ==
--- OUTSIDE RECORDS SUMMARY | 2017-12-25 08:54 | XMS REPORT ---
:1995 External Reference #:[id number] Author Organization [email or web address] Address [address] [place] [address] [place] [address] Phone [phone] Care Team Providers Name Role Phone Vikash Sotelo RPA Primary Care Physician Unavailable Payers Type Date Identification Numbers Payment Provider Subscriber Workers Compensation Effective: Policy Number: [id number] [employer] Smith 2017 Onset: 2017 Group Number: [phone] [address] PayID: [id number] [place] [address] Problems Description No Information Family History Date Family Member(s) Problem(s) Comments General Diabetes General Hypertension Father Hypertension Social History Type Date Description Comments Marital Status Single Lives With Boyfriend Occupation Natural Fabricator Cigarette Use Never Smoked Cigarettes ETOH Use Occasionally consumes alcohol Smoking Patient has never smoked Recreational Drug Use Sporadically uses Marijuana Daily Caffeine Does Not Consume Caffeine Exercise Type/Frequency Does not exercise Allergies, Adverse Reactions, Alerts Date Description Reaction Status Severity Comments 12/10/2017 Augmentin active Medications Medication Date Status Form Strength Qnty SIG Indications Ordering Provider Nexplanon Active Implant 68mg inserted Unknown Vital Signs Date Vital Result Comment 12/10/2017 Height 64 inches 5'4" Weight 160.00 lb Heart Rate 66 /min BP Systolic Sitting 116 mmHg BP Diastolic Sitting 60 mmHg Respiratory Rate 18 /min Pain Level 3 BMI (Body Mass Index) 27.5 kg/m2 Results Description No Information Procedures Date CPT Code Description Status 12/10/2017 26698 Inject/Drain Joint/Bursa Intermediate W/O US Completed Plan of Care Future Appointment(s):12/21/2017 1:30 pm - Bon Bentley MD at [facility] AT Vfprjsyb88/21/2018 - Bon Bentley [id number] Sprain of carpal joint of left wrist, initial encounterFollow up:Follow up: 10-14 days
--- OUTSIDE RECORDS SUMMARY | 2017-12-25 08:54 | XMS REPORT ---
:1995 External Reference #:[id number] Author Organization [employer] Address [address] [place] [address] Phone [phone] Care Team Providers Name Role Phone Vikash Sotelo RPA Primary Care Physician Unavailable Payers Type Date Identification Numbers Payment Provider Subscriber Workers Compensation Effective: Policy Number: [id number] [employer] Smith 2017 Onset: 2017 Group Number: [id number] [address] PayID: [id number] [place] [address] Problems Description No Information Family History Date Family Member(s) Problem(s) Comments General Diabetes General Hypertension Father Hypertension Social History Type Date Description Comments Marital Status Single Lives With Boyfriend Occupation Food Equipment Service Technician Cigarette Use Never Smoked Cigarettes ETOH Use Occasionally consumes alcohol Smoking Patient has never smoked Recreational Drug Use Sporadically uses Marijuana Daily Caffeine Does Not Consume Caffeine Exercise Type/Frequency Does not exercise Allergies, Adverse Reactions, Alerts Date Description Reaction Status Severity Comments 12/10/2017 Augmentin active Medications Medication Date Status Form Strength Qnty SIG Indications Ordering Provider Nexplanon Active Implant 68mg inserted Unknown Medications Administered in Office Medication Date Status Form Strength Qnty SIG Indications Ordering Provider Celestone 3 mg Administered Injection Bon Jose A and 3mg Rosa Maria Bentley MD Vital Signs Date Vital Result Comment 12/21/2017 Height 64 inches 5'4" Weight 160.00 lb Heart Rate 72 /min BP Systolic Sitting 122 mmHg BP Diastolic Sitting 74 mmHg Respiratory Rate 18 /min Pain Level 0 BMI (Body Mass Index) 27.5 kg/m2 12/10/2017 Height 64 inches 5'4" Weight 160.00 lb Heart Rate 66 /min BP Systolic Sitting 116 mmHg BP Diastolic Sitting 60 mmHg Respiratory Rate 18 /min Pain Level 3 BMI (Body Mass Index) 27.5 kg/m2 Results Description No Information Procedures Date CPT Code Description Status 12/10/2017 19075 Inject/Drain Joint/Bursa Intermediate W/O US Completed Plan of Care 12/21/2017 - Bon Bentley, [id number] Sprain of carpal joint of left wrist, subsequent encounterFollow up:Follow up: As needed
[2017-12-25 09:00] VITALS: BP 111/71
--- NOTE | 2017-12-25 09:18 | UC ---
Throat Pain/Nasal Joaquin HPI - HPI Summary HPI Summary: ONSET YESTERDAY OF SORE THROAT, PAIN WITH SWALLOWING, HEADACHE AND NAUSEA. HAS SUBJECTIVE FEVER AND CHILLS. NO COUGH OR CONGESTION. - History of Current Complaint Chief Complaint: UCGeneralIllness Stated Complaint: SORE THROAT HEADACHE Time Seen by Provider: 12/25/17 09:17 Hx Obtained From: Patient Hx Last Menstrual Period: 11/30/17 Onset/Duration: Gradual Onset, Lasting Days - 1 DAY, Still Present Severity: Moderate Pain Intensity: 9 Pain Scale Used: 0-10 Numeric Cough: None Associated Signs & Symptoms: Negative: Wheezing, Hoarseness, Nasal Discharge, Fever - Allergies/Home Medications Allergies/Adverse Reactions: Allergies Allergy/AdvReac Type Severity Reaction Status Date / Time amoxicillin [From Augmentin] AdvReac Unknown Diarrhea Verified 12/25/17 08:55 clavulanic acid AdvReac Unknown Diarrhea Verified 12/25/17 08:55 [From Augmentin] Home Medications: Home Medications Acetaminophen/Dextromethorphan [Daytime Cold & Cough Liquid] 30 ml PO Q8HR PRN 12/25/17 [History Confirmed 12/25/17] PMH/Surg Hx/FS Hx/Imm Hx - Additional Past Medical History Additional PMH: TMJ - Surgical History Surgical History: None - Family History Known Family History: Positive: Hypertension, Diabetes - Social History Alcohol Use: Occasionally Substance Use Type: Marijuana Substance Use Comment - Amount & Last Used: OCCAISIONALLY Smoking Status (MU): Never Smoked Tobacco - Immunization History Most Recent Influenza Vaccination: unsure Vaccination Up to Date: Yes Review of Systems Constitutional: Chills ENT: Sore Throat Respiratory: Negative Cardiovascular: Negative Gastrointestinal: Nausea Neurological: Headache All Other Systems Reviewed And Are Negative: Yes Physical Exam Triage Information Reviewed: Yes Appearance: Well-Appearing, No Pain Distress, Well-Nourished Vital Signs: Initial Vital Signs Temp 98.4 F 12/25/17 08:54 Pulse 80 12/25/17 08:54 Resp 15 12/25/17 08:54 BP 111/71 12/25/17 08:54 Pulse Ox 97 12/25/17 08:54 Vital Signs Reviewed: Yes Eyes: Positive: Conjunctiva Clear ENT: Positive: Hearing grossly normal, Pharyngeal erythema, TMs normal, Tonsillar swelling, Tonsillar exudate Neck: Positive: Supple, Tenderness @ - SPFL CERVICAL LAD, Enlarged Nodes @ - SPFL CERVICAL LAD Respiratory Exam: Normal Cardiovascular Exam: Normal Abdomen Description: Positive: Nontender, Soft Musculoskeletal: Positive: No Edema Neurological: Positive: Alert Psychological: Positive: Age Appropriate Behavior Skin: Negative: rashes Diagnostics - Laboratory Diagnostic Studies Completed/Ordered: STREP POS Throat Pain/Nasal Course/Dx - Course Course Of Treatment: PT WITH AMOX/CLAV ALLERGY LISTED. PT STATES IT GIVES HER DIARRHEA BUT NO RASH OR RESP ISSUES. IS OKAY WITH TAKING AMOXICILLIN AND STATES SHE WILL CALL IF SHE DEVELOPS GI UPSET. - Differential Dx/Diagnosis Provider Diagnoses: STREP PHARYNGITIS Discharge - Sign-Out/Discharge Documenting (check all that apply): Discharge/Admit/Transfer - Discharge Plan Condition: Stable Disposition: HOME Prescriptions: Amoxicillin PO (*) [Amoxicillin 500 MG CAP*] 1,000 mg PO DAILY #20 cap Magic Mouth Was-JEM/MAAL/LIDO* 5 - 10 ml SWISH SWAL QID PRN #150 ml PRN Reason: Sore Throat Patient Education Materials: Strep Throat (ED) Referrals: Bayron Sotelo PA [Primary Care Provider] - If Needed Additional Instructions: STREP TEST POSITIVE TAKE AMOXICILLIN FOR THE FULL 10 DAYS. CALL IF YOU DEVELOP ANY GI DISTRESS. MAGIC MOUTHWASH FOR DISCOMFORT NEEDED. OTC CHLORASEPTIC OR CEPACOL LOZENGES AND/OR IBUPROFEN FOR SORE THROAT NEEDED ONCE SYMPTOMS RESOLVED - NEW TOOTHBRUSH DO NOT SHARE FOOD, DRINK, UTENSILS - Billing Disposition and Condition Condition: STABLE Disposition: Home
== END 2017-12-25 10:00 | disposition home or self-care (01) ==
LOC: UCCORT 08:35
DX: J02.0 Streptococcal pharyngitis (principal); Z88.0 Allergy status to penicillin; Z88.8 Allergy status to other drugs, medicaments and biological substances
CPT/HCPCS: 87651; 99212; G0463

== ENCOUNTER 2018-01-16 11:38 | Emergency (ER) | payer OTHER ==
[2018-01-16 11:55] VITALS: BP 116/74
--- NOTE | 2018-01-16 13:14 | UC ---
Back Pain HPI - HPI Summary HPI Summary: hx of episodic low back pain; this am felt a sharp pain in the left SI joint area after bending and reaching into the back of her closet. Unable to continue work shift at [employer]. Has not used analgesics. Has never done PT, does not exercise. No weakness, numbness, urinary or fecal incontinence. - History of Current Complaint Chief Complaint: UCBackPain Stated Complaint: BACK PAIN Time Seen by Provider: 01/16/18 13:03 Hx Obtained From: Patient Hx Last Menstrual Period: 01/09/18 Onset/Duration: Sudden Onset, Lasting Hours - about 6 hours Severity Initially: Moderate Severity Currently: Moderate Pain Intensity: 8 Character: Aching, Stiffness Aggravating Factor(s): Movement, Lifting, Bending, Walking Alleviating Factor(s): Rest Associated Signs And Symptoms: Positive: Negative - Allergies/Home Medications Allergies/Adverse Reactions: Allergies Allergy/AdvReac Type Severity Reaction Status Date / Time amoxicillin [From Augmentin] AdvReac Unknown Diarrhea Verified 12/25/17 08:55 clavulanic acid AdvReac Unknown Diarrhea Verified 12/25/17 08:55 [From Augmentin] PMH/Surg Hx/FS Hx/Imm Hx Previously Healthy: Yes - Surgical History Surgical History: None - Family History Known Family History: Positive: Hypertension, Diabetes - MGM - Social History Occupation: Employed Full-time Lives: With Family Alcohol Use: Occasionally Substance Use Type: Marijuana Substance Use Comment - Amount & Last Used: OCCAISIONALLY Smoking Status (MU): Never Smoked Tobacco - Immunization History Most Recent Influenza Vaccination: unsure Vaccination Up to Date: Yes Review of Systems Constitutional: Negative Skin: Negative Eyes: Negative ENT: Negative Respiratory: Negative Cardiovascular: Negative Gastrointestinal: Negative Genitourinary: Negative Motor: Negative Neurovascular: Negative Musculoskeletal: Arthralgia, Myalgia Neurological: Negative Psychological: Negative Is Patient Immunocompromised?: No All Other Systems Reviewed And Are Negative: Yes Physical Exam Triage Information Reviewed: Yes Appearance: Well-Appearing, Pain Distress - mild to moderate Vital Signs: Initial Vital Signs Temp 99.2 F 01/16/18 11:50 Pulse 63 01/16/18 11:50 Resp 18 01/16/18 11:50 BP 116/74 01/16/18 11:50 Pulse Ox 100 01/16/18 11:50 Neck: Positive: Supple, Nontender, No Lymphadenopathy Respiratory: Positive: Lungs clear, Normal breath sounds Cardiovascular Exam: Normal Musculoskeletal Exam: Other - Antalgic gait, moving slowly. Musculoskeletal: Positive: Strength Intact, ROM Limited @ - tenderness in the upper left SI joint lumbar spine--FF to 45 degrees with pain beyond. Lateral bending normal, has pain with extension., Other: - SLR to 90 degrees bialaterally. Full rom in hips. Neurological: Positive: Muscle Tone Normal Psychological Exam: Normal Skin Exam: Normal Back Pain Course/Dx - Course Course Of Treatment: ibuprofen for pain; advised increase in exercise and back strengthening. - Differential Dx/Diagnosis Differential Diagnosis/HQI/PQRI: Herniated Disc, Strain Provider Diagnoses: acute low back strain Discharge - Sign-Out/Discharge Documenting (check all that apply): Patient Departure - Discharge Plan Condition: Stable Disposition: HOME Patient Education Materials: Low Back Strain (ED) Forms: *Work Release Referrals: Bayron Sotelo PA [Primary Care Provider] - Additional Instructions: Use ibuprofen 600mg up to 3x daily for control of pain. Use ice to the sore area today; after today, ice or heat might give relief. Early stretching exercises can help to relieve the muscle spasm. - Billing Disposition and Condition Condition: STABLE Disposition: Home
[2018-01-16] MEDS ORDERED: Ibuprofen TAB* 600 MG PO ONE (13:19)
== END 2018-01-16 13:32 | disposition home or self-care (01) ==
LOC: UCCORT 11:38
DX: S39.012A Strain of muscle, fascia and tendon of lower back, initial encounter (principal); X50.0XXA Overexertion from strenuous movement or load, initial encounter; Y93.89 Activity, other specified; Y92.008 Other place in unspecified non-institutional (private) residence as the place of occurrence of the external cause; Z88.0 Allergy status to penicillin; Z88.8 Allergy status to other drugs, medicaments and biological substances
CPT/HCPCS: 99212; A9270-GY; G0463

== ENCOUNTER 2018-01-23 07:32 | Emergency (ER) | payer OTHER ==
--- NOTE | 2018-01-23 07:44 | UC ---
Throat Pain/Nasal Joaquin HPI - HPI Summary HPI Summary: Patient presents complaining of sore throat that started yesterday morning. Patient states pain progressive for 24 hours. Patient reports she took some Motrin yesterday. Patient states she is nauseous with one episode of emesis last night. Patient has been gargling with warm salt water. Patient also gargling with Listerine. Patient reports nausea but no vomiting this morning. No analgesia taken this morning. Patient denies any rash. Patient states she was was treated for strep approximately 3-1/2 weeks ago. Patient states she took amoxicillin and felt better. Patient states she did not change her toothbrush and is concerned she may have contaminated self. Patient states she had strep throat 2 months ago as well. Patient states she hasn't had since she was child so surprised that this is her third episode this year. 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 Patient denies other complaints. No headache. No sinus congestion. No ear pain. No shortness of breath. No cough. Patient is not inial, otherwise. Patient is not concern for . Patient's medications reviewed this visit. - History of Current Complaint Stated Complaint: SORE THROAT Hx Obtained From: Patient Hx Last Menstrual Period: 01/09/18 Onset/Duration: Gradual Onset - 24 hours Severity: Moderate Pain Intensity: 4 Pain Scale Used: 0-10 Numeric - Allergies/Home Medications Allergies/Adverse Reactions: Allergies Allergy/AdvReac Type Severity Reaction Status Date / Time clavulanic acid AdvReac Unknown Diarrhea Verified 01/23/18 07:40 [From Augmentin] Home Medications: Home Medications Dm/PE/Acetaminophen/Doxylamine [Vicks Nyquil Severe Cold] 30 ml PO Q6H PRN 01/23 [History Confirmed 01/23/18] PMH/Surg Hx/FS Hx/Imm Hx Previously Healthy: Yes - Surgical History Surgical History: None - Family History Known Family History: Positive: Hypertension, Diabetes - MGM - Social History Occupation: Employed Full-time Lives: With Family Alcohol Use: Occasionally Substance Use Type: Marijuana Substance Use Comment - Amount & Last Used: OCCAISIONALLY Smoking Status (MU): Never Smoked Tobacco - Immunization History Most Recent Influenza Vaccination: unsure Vaccination Up to Date: Yes Review of Systems Constitutional: Fever ENT: Sore Throat Gastrointestinal: Vomiting, Nausea All Other Systems Reviewed And Are Negative: Yes Physical Exam - Summary Physical Exam Summary: Vital Signs Reviewed: Yes A+Ox3, no distress Eyes: Conjunctiva Clear, PRAKASH. EOM intact and full ENT: Hearing grossly normal TM x 2 clear, turbinates wnl, no PND, mmoist, uvula midline, + diffuse erythema oropharynx + exudate L>R Neck: Positive: Supple no lymphadenopathy Respiratory: Positive: No respiratory distress, No accessory muscle use + CTA throughout no w/r Cardiovascular: RRR mildly tachycardic nl s1, s2 no m/r CBT <2 sec abd soft + BS nt/nd no guarding, no distension Musculoskeletal Exam: ROACH x 4 without difficulty Strength Intact, ROM Intact Neurological: Positive: Alert, + sensation throughout Psychological: Positive: Normal Response To Family Skin: Positive: no rash, no ecchymosis Triage Information Reviewed: Yes Throat Pain/Nasal Course/Dx - Course Assessment/Plan: Patient presents with sore throat progressive over 24 hours throat which was treated and symptoms resolved. Patient states she did not change her toothbrush following this. Patient with fevers, nausea. Patient with one episode of emesis. Patient take antipyretics today. Patient's vital signs reviewed and are be tachycardic as well as have a mild fever. On exam patient well-appearing and in no distress. Patient is of exudate on her left tonsil greater than right. Patient does have diffuse erythema of the oropharynx. Patient with positive strep throat. We'll put patient on Keflex 500 twice a day for 10 days. Discussed with patient secretion precaution. We' ll give Motrin here. Patient was given 1 crackers that she was able to tolerate without difficulty in swallowing. Return precautions discussed. Hydrate. Work note for today. Patient comfortable in agreement with plan. - Differential Dx/Diagnosis Provider Diagnoses: strep pharyngitis Discharge - Sign-Out/Discharge Documenting (check all that apply): Patient Departure - Discharge Plan Condition: Stable Disposition: HOME Prescriptions: Cephalexin CAP* [Keflex 500 CAP*] 500 mg PO BID #20 cap Fluconazole [Diflucan 150 MG (NF)] 150 mg PO ONCE PRN #1 tab PRN Reason: vaginal yeast infection Patient Education Materials: Pharyngitis (ED) Forms: *Work Release Referrals: Bayron Sotelo PA [Primary Care Provider] - Bola Gerard MD [Medical Doctor] - Additional Instructions: - Okay to alternate ibuprofen (Advil, Motrin)600mg and Tylenol every 3 hours for pain. Take with food. Do NOT take for more than 4-5 days - Okay to gargle and spit every 4 hours as needed for pain - Stay well hydrated - frequent sips of cold fluids will be soothing to your throat (popsicles, jello, ice cream, ice water). Avoid excess caffeine until your symptoms have resolved. - Do not share eating, drinking utensils. Throw out your toothbrush when your symptoms resolved -Throat infections are spread by oral secretions - do not share eating or drinking utensils until you symptoms are resolved. Clean items that may get your secretions such as cell phones, ipads, computer mouse, television remotes. After you have been on antibiotics for 2 days, change you tooth brush and your pillowcase. - you have been given a prescription for diflucan - okay to use as needed for a vaginal yeast infection - Contact your doctor to arrange a follow-up appointment as needed. You have been given the contact info for an ears, nose, and throat provider if you wish to discuss removal of tonsils - Billing Disposition and Condition Condition: STABLE Disposition: Home
[2018-01-23 07:48] VITALS: BP 126/75
[2018-01-23] MEDS ORDERED: Acetaminophen TAB* 325 MG PO ONE (07:58)
== END 2018-01-23 08:17 | disposition home or self-care (01) ==
LOC: UCCORT 07:32
DX: J02.0 Streptococcal pharyngitis (principal)
CPT/HCPCS: 87651; 99212; A9270-GY; G0463

== ENCOUNTER 2018-06-24 11:22 | Emergency (ER) | payer SELFPAY ==
[2018-06-24 12:50] VITALS: BP 117/73
--- NOTE | 2018-06-24 14:04 | ED ---
Throat Pain/Nasal Congestion - HPI Summary HPI Summary: 23 yr old with scratch throat two days, and she is complaining of pain to the maxillary sinus area with dry cough. She is also complaining of fever, chills, myalgias. She has no other complaints. Denies SOB, chest pain. She has no other complaints. - History of Current Complaint Chief Complaint: UCRespiratory Time Seen by Provider: 06/24/18 13:20 - Allergies/Home Medications Allergies/Adverse Reactions: Allergies Allergy/AdvReac Type Severity Reaction Status Date / Time clavulanic acid AdvReac Unknown Diarrhea Verified 06/24/18 12:41 [From Augmentin] Home Medications: Home Medications Otc Decongestant 1 tab PRN 06/24/18 [History] PMH/Surg Hx/FS Hx/Imm Hx Previously Healthy: Yes Infectious Disease History: No Infectious Disease History: Denies: Traveled Outside the [place] in Last 30 Days - Family History Known Family History: Positive: Hypertension, Diabetes - MGM - Social History Occupation: Employed Full-time Alcohol Use: Occasionally Substance Use Type: Reports: Marijuana Substance Use Comment - Amount & Last Used: OCCAISIONALLY Smoking Status (MU): Never Smoked Tobacco Review of Systems Constitutional: Negative Positive: Nasal Discharge Positive: Cough All Other Systems Reviewed And Are Negative: Yes Physical Exam Triage Information Reviewed: Yes Vital Signs On Initial Exam: Initial Vitals Temp Pulse Resp BP Pulse Ox 99 F 74 16 117/73 99 06/24/18 12:43 06/24/18 12:43 06/24/18 12:43 06/24/18 12:43 06/24/18 12:43 Vital Signs Reviewed: Yes Appearance: Positive: Well-Appearing, No Pain Distress Skin: Positive: Warm, Skin Color Reflects Adequate Perfusion Head/Face: Positive: Normal Head/Face Inspection Eyes: Positive: EOMI ENT: Positive: Pharyngeal erythema, Nasal drainage, Sinus tenderness Neck: Positive: Nontender Respiratory/Lung Sounds: Positive: Clear to Auscultation, Breath Sounds Present Cardiovascular: Positive: RRR. Negative: Murmur Abdomen Description: Negative: Distended Musculoskeletal: Positive: Strength/ROM Intact Neurological: Positive: Sensory/Motor Intact, Alert, Oriented to Person Place, Time, CN Intact II-III, Normal Gait, Finger to Nose, Speech Normal Psychiatric: Positive: Normal - [place] Coma Scale Best Eye Response: 4 - Spontaneous Best Motor Response: 6 - Obeys Commands Best Verbal Response: 5 - Oriented Coma Scale Total: 15 Diagnostics - Vital Signs Vital Signs Temp Pulse Resp BP Pulse Ox 06/24/18 12:43 99 F 74 16 117/73 99 - Laboratory Lab Results: Lab Results 06/24/18 Range/Units 13:26 Group A Strep Rapid Negative (Negative) Lab Statement: Any lab studies that have been ordered have been reviewed, and results considered in the medical decision making process. EENT Course/Dx - Course Course Of Treatment: 23 yr old female with sinusitis. She get diarrhea with clavulonic acid only. No problem with cephalosporins and no allergies. - Diagnoses Provider Diagnoses: Sinusitis Discharge - Sign-Out/Discharge Documenting (check all that apply): Patient Departure All imaging exams completed and their final reports reviewed: No Studies - Discharge Plan Condition: Good Disposition: HOME Prescriptions: Cefdinir [Cefdinir 300 MG CAP] 300 mg PO BID #20 cap Patient Education Materials: Sinusitis (ED) Forms: *Work Release Referrals: Bayrno Sotelo PA [Primary Care Provider] - 2 Days - Billing Disposition and Condition Condition: GOOD Disposition: Home
== END 2018-06-24 14:09 | disposition home or self-care (01) ==
LOC: UCCORT 11:22
DX: J32.9 Chronic sinusitis, unspecified (principal); Z88.8 Allergy status to other drugs, medicaments and biological substances
CPT/HCPCS: 87651; 99212; G0463

== ENCOUNTER 2019-06-14 08:04 | Emergency (ER) | payer BC, MEDICAID ==
[2019-06-14 08:18] VITALS: BP 122/81
--- NOTE | 2019-06-14 08:29 | UC ---
Throat Pain/Nasal Joaquin HPI - HPI Summary HPI Summary: sore throat x 4 days pain is severe 8 out 10 , worse with eating , better with Tylenol + fever, chills, body aches, denies any cough , no runny nose/ nasal congestion - History of Current Complaint Chief Complaint: UCGeneralIllness Stated Complaint: SORE THROAT Time Seen by Provider: 06/14/19 08:10 Hx Obtained From: Patient Hx Last Menstrual Period: 05/16/19 ?: No Onset/Duration: Gradual Onset, Lasting Days - 4, Still Present Severity: Severe Pain Intensity: 8 Cough: None Associated Signs & Symptoms: Positive: Fever. Negative: Dysphagia, FB Sensation , Drooling, Wheezing, Hoarseness, Sinus Discomfort, Nasal Discharge, Vomiting, Rash - Allergies/Home Medications Allergies/Adverse Reactions: Allergies Allergy/AdvReac Type Severity Reaction Status Date / Time clavulanic acid AdvReac Unknown Diarrhea Verified 06/14/19 08:15 [From Augmentin] PMH/Surg Hx/FS Hx/Imm Hx - Additional Past Medical History Additional PMH: TMJ/ ovarian cyst - Surgical History Surgical History: None - Family History Known Family History: Positive: Hypertension, Diabetes - MGM - Social History Alcohol Use: Occasionally Substance Use Type: Marijuana Substance Use Comment - Amount & Last Used: OCCAISIONALLY Smoking Status (MU): Never Smoked Tobacco - Immunization History Most Recent Influenza Vaccination: unsure Vaccination Up to Date: Yes Review of Systems All Other Systems Reviewed And Are Negative: Yes Constitutional: Positive: Fever, Chills, Fatigue Skin: Positive: Negative Eyes: Positive: Negative ENT: Positive: Sore Throat. Negative: Ear Ache, Nasal Discharge, Sinus Congestion Respiratory: Positive: Negative Is Patient Immunocompromised?: No Physical Exam Triage Information Reviewed: Yes Appearance: Well-Appearing, No Pain Distress, Well-Nourished Vital Signs: Initial Vital Signs Temp 98.1 F 06/14/19 08:16 Pulse 94 06/14/19 08:16 Resp 15 06/14/19 08:16 BP 122/81 06/14/19 08:16 Pulse Ox 100 06/14/19 08:16 Vital Signs Reviewed: Yes Eyes: Positive: Conjunctiva Clear ENT: Positive: Normal ENT inspection, Hearing grossly normal, Pharyngeal erythema, TMs normal, Tonsillar swelling, Tonsillar exudate. Negative: Trismus Neck exam: Normal Neck: Positive: Supple, Nontender, No Lymphadenopathy Respiratory: Positive: Chest non-tender, Lungs clear, Normal breath sounds Cardiovascular: Positive: RRR, No Murmur, Pulses Normal Abdominal Exam: Normal Skin Exam: Normal Throat Pain/Nasal Course/Dx - Differential Dx/Diagnosis Provider Diagnosis: Strep pharyngitis Discharge ED - Sign-Out/Discharge Documenting (check all that apply): Patient Departure All imaging exams completed and their final reports reviewed: No Studies - Discharge Plan Condition: Stable Disposition: HOME Prescriptions: Amoxicillin PO (*) [Amoxicillin 875 MG (*)] 875 mg PO BID #20 tab Patient Education Materials: Strep Throat (ED) Referrals: Bayron Sotelo PA [Primary Care Provider] - If Needed - Billing Disposition and Condition Condition: STABLE Disposition: Home
== END 2019-06-14 08:32 | disposition home or self-care (01) ==
LOC: UCCORT 08:04
DX: J02.0 Streptococcal pharyngitis (principal); R53.83 Other fatigue; Z88.0 Allergy status to penicillin
CPT/HCPCS: 87651; 99212; G0463